=== PATIENT | male | born 1945 ===

== ENCOUNTER → 2023-06-05 08:42 | Outpatient (CLI) | payer MEDICARE, OTHER, SELFPAY ==
[2023-06-05 21:18] LABS: Creatinine Urine Random 84.8 mg/dL
[2023-06-05 21:20] LABS: Microalbumin Urine Random < 0.6 mg/dL (0-1.6)
[2023-06-05 22:10] LABS: Alanine Aminotransferase 24 IU/L (<50); Albumin Globulin Ratio 1.5 (1.0-2.8); Alkaline Phosphatase 48 U/L (38-126); Aspartate Aminotransferase 28 IU/L (17-59); BUN Creatinine Ratio 12.4 (6-22); Bilirubin Total 1.1 mg/dL (0.2-1.3); Blood Urea Nitrogen 11 mg/dL (9-20); Calcium 9.1 mg/dL (8.4-10.2); Carbon Dioxide 30 mmol/L (22-32); Chloride 99 mmol/L (98-107); Cholesterol 137 mg/dL (140-199); Estimated Glomerular Filt Rate > 60 mL/min (>60); Globulin 2.7 g/dL (1.7-4.1); Glucose 82 mg/dL (80-110); HDL Cholesterol 43 mg/dL (40-60); HEMOLYSIS < 15 (0-50); LDL Cholesterol Calculated 78 mg/dL (<100); Potassium 4.1 mmol/L (3.4-5.1); Sodium 135 mmol/L (137-145); Total Protein 6.7 g/dL (6.3-8.2); Triglycerides 80 mg/dL (35-150)
[2023-06-05 22:38] LABS: Prostate Specific Antigen Scrn 4.52 ng/mL (0.1-4.0)
== END ==
PROVIDERS: PCP Physician Assistant; Visit Provider Physician Assistant
DX: Z13.6 Encounter for screening for cardiovascular disorders (principal); Z12.5 Encounter for screening for malignant neoplasm of prostate; H35.3190 Nonexudative age-related macular degeneration, unspecified eye, stage unspecified; Z13.1 Encounter for screening for diabetes mellitus
CPT/HCPCS: 80053; 80061; 82043; 82570; G0103

== ENCOUNTER → 2024-06-25 12:55 | Outpatient (CLI) | payer MEDICARE, OTHER, SELFPAY | PROVIDERS: PCP Physician Assistant; Visit Provider Physician Assistant Medical | DX: L30.8 Other specified dermatitis (principal) | CPT/HCPCS: 87070; 87075; 87205; 87252 ==